=== PATIENT | female | born 1975 | race African-American/Black ===

== ENCOUNTER 2017-03-14 10:42 | Emergency (ER) | payer OTHER ==
[~2017-03-14] VITALS: Ht 160 cm; Wt 58.1 kg
[2017-03-14 10:59] VITALS: BP 100/68
[2017-03-14 11:15] LABS: BASOPHILS # (AUTO) 0.2 K/uL (0.00-0.22); BASOPHILS % (AUTO) 4.1 % (0.0-2.0); EOSINOPHILS # (AUTO) 0.2 K/uL (0-0.4); EOSINOPHILS % (AUTO) 3.9 % (0.0-4.0); HEMATOCRIT 38.4 % (36-48); HEMOGLOBIN 12.9 g/dL (12.0-16.0); LYMPHOCYTES # (AUTO) 1.9 K/uL (2.5-16.5); LYMPHOCYTES % (AUTO) 36.8 % (20.5-51.1); MEAN CORPUSCULAR HEMOGLOBIN 31 pg (27-31); MEAN CORPUSCULAR HGB CONC 34 g/dL (33-37); MEAN CORPUSCULAR VOLUME 92 fL (80-94); MONOCYTES # (AUTO) 0.5 K/uL (0.8-1.0); MONOCYTES % (AUTO) 10.1 % (1.7-9.3); NEUTROPHILS # (AUTO) 2.3 K/uL (1.8-7.7); NEUTROPHILS % (AUTO) 45.1 % (42.2-75.2); PLATELET COUNT (AUTO) 255 K/uL (140-450); RED BLOOD CELL COUNT(AUTO) 4.15 MIL/uL (4.20-5.40); RED CELL DISTRIBUTION WIDTH 12.2 % (11.6-13.7); WHITE BLOOD COUNT (AUTO) 5.1 K/uL (4.8-10.8)
--- NOTE | 2017-03-14 14:15 | NUR ---
Patient to bed 7 at this time,
--- NOTE | 2017-03-14 14:16 | NUR ---
PT PRESENTS TO ER W/C/O CONGESTION/COUGH X1 WEEK. PT DENIES ANY MEDICAL HX. DENIES N/V/D; SKIN IS PINK/WARM/DRY; AAOX4 WITH EVEN AND STEADY GAIT; LUNGS CLEAR BL; HR EVEN AND REGULAR; PT DENIES ANY FEVER, CP, SOB, OR COUGH AT THIS TIME; PATIENT STATES SINUS PRESSURE PAIN OF 7/10 AT THIS TIME; PATIENT POSITIONED FOR COMFORT; HOB ELEVATED; BEDRAILS UP X2; BED DOWN. ER MD MADE AWARE OF PT STATUS.
[2017-03-14] MEDS ORDERED: DEXAMETHASONE 10 MG/ML VIAL IM ONE (15:00)
[2017-03-14] MEDS ORDERED: cefTRIAXone 1,000 MG in LIDOCAINE 1% ED 2.1 ML IM ONE (15:00)
[2017-03-14] MEDS ORDERED: ALBUTEROL SULFATE/IPRATROPIU 3 ML SOL IH ONE (15:00)
--- NOTE | 2017-03-14 15:08 | NUR ---
ADMITTING DX: CONGESTION HX: PATEITN DENIES ASTHMA/COPD HFW POSITION EDUCATIN PROVIDED TO PATIENT WITH ACKNOWLEDGEMENT ON HHN THERAPY AND RESPIRATORY DRUG HHN THERAPY GIVEN OREDERED ENCOURAGED DEEP BREATHING DURING THERAPY TOLERATED WELL WITHOUT ADVERSE REACTIONS NOTED
--- NOTE | 2017-03-14 15:12 | NUR ---
RT AT BEDSIDE FOR BREATHING TREATMENT
[2017-03-14 15:55] VITALS: BP 105/72
--- NOTE | 2017-03-14 15:55 | NUR ---
Patient discharged with v/s stable. Written and verbal after care instructions given and explained. Patient alert, oriented and verbalized understanding of instructions. Ambulatory with steady gait. All questions addressed prior to discharge. ID band removed. Patient advised to follow up with PMD. Rx of ALBUTEROL, AZITHROMYCIN & PREDNISONE given. Patient educated on indication of medication including possible reaction and side effects. Opportunity to ask questions provided and answered.
== END 2017-03-14 15:55 | disposition home or self-care (01) ==
LOC: MED 10:42
DX: J20.9 Acute bronchitis, unspecified (principal); F12.90 Cannabis use, unspecified, uncomplicated
CPT/HCPCS: 36415; 71010; 85025; 94640; 96372; 99285; J0696; J1100; J2001; J7620

== ENCOUNTER 2017-06-06 11:26 | Emergency (ER) | payer OTHER ==
[~2017-06-06] VITALS: Ht 160 cm; Wt 59.0 kg
[2017-06-06 11:41] VITALS: BP 114/67
--- NOTE | 2017-06-06 11:52 | NUR ---
PT MOVED TO OVERFLOW CHAIR 3.
--- NOTE | 2017-06-06 11:53 | NUR ---
41/F c/o left wrist pain s/p trip and fall this morning around 0700. Patient c/o left wrist pain, mild swelling, PCMS intact. AOX4, ambulatory with steady gait. VSS.
--- NOTE | 2017-06-06 12:16 | NUR ---
Pt taken to x-ray via w/c.
--- NOTE | 2017-06-06 13:03 | NUR ---
Pt taken to x-ray via w/c for second x-ray.
[2017-06-06 13:58] VITALS: BP 114/79
--- NOTE | 2017-06-06 13:58 | NUR ---
Patient discharged with v/s stable. Written and verbal after care instructions given and explained. Patient verbalized understanding. Ambulatory with steady gait. All questions addressed prior to discharge. Advised to follow up with PMD.
== END 2017-06-06 13:58 | disposition home or self-care (01) ==
LOC: MED 11:26
DX: S60.212A Contusion of left wrist, initial encounter (principal); W18.30XA Fall on same level, unspecified, initial encounter; Y93.89 Activity, other specified; Y92.098 Other place in other non-institutional residence as the place of occurrence of the external cause; Y99.8 Other external cause status
CPT/HCPCS: 73080; 73110; 99284

== ENCOUNTER 2018-04-26 09:00 | Emergency (ER) | payer OTHER ==
[~2018-04-26] VITALS: Ht 160 cm; Wt 52.2 kg
[2018-04-26 09:08] VITALS: BP 101/71
--- NOTE | 2018-04-26 09:09 | NUR ---
PT AMBULATES TO BED 1
--- NOTE | 2018-04-26 09:23 | NUR ---
c/o lower abdominal cramping x 3 days denies dysuria or vaginal dc denies n/v/d hx--denies rx---none
--- NOTE | 2018-04-26 09:30 | NUR ---
at bedside evaluating pt
[2018-04-26 10:30] LABS: BASOPHILS % (AUTO) 0.5 % (0.0-2.0); EOSINOPHILS # (AUTO) 0.3 K/uL (0-0.4); EOSINOPHILS % (AUTO) 4.6 % (0.0-4.0); HEMATOCRIT 36.9 % (36-48); HEMOGLOBIN 12.3 g/dL (12.0-16.0); LYMPHOCYTES # (AUTO) 2.2 K/uL (2.5-16.5); LYMPHOCYTES % (AUTO) 38.4 % (20.5-51.1); MEAN CORPUSCULAR HEMOGLOBIN 32 pg (27-31); MEAN CORPUSCULAR HGB CONC 34 g/dL (33-37); MEAN CORPUSCULAR VOLUME 95.5 fL (80-94); MONOCYTES # (AUTO) 0.4 K/uL (0.8-1.0); MONOCYTES % (AUTO) 6.8 % (1.7-9.3); NEUTROPHILS # (AUTO) 2.9 K/uL (1.8-7.7); NEUTROPHILS % (AUTO) 49.7 % (42.2-75.2); PLATELET COUNT (AUTO) 258 K/uL (140-450); RED BLOOD CELL COUNT(AUTO) 3.86 MIL/uL (4.20-5.40); RED CELL DISTRIBUTION WIDTH 12.7 % (11.6-13.7); WHITE BLOOD COUNT (AUTO) 5.8 K/uL (4.8-10.8)
--- NOTE | 2018-04-26 10:30 | NUR ---
pt on stretcher in nad
[2018-04-26 10:37] LABS: COLOR,URINE YELLOW (YELLOW)
[2018-04-26 10:44] LABS: BILIRUBIN,URINE NEGATIVE (NEGATIVE); NITRITE, URINE NEGATIVE (NEGATIVE); PH,URINE 6.5 (5.0-9.0); UGLUCOSE NEGATIVE (NEGATIVE)
[2018-04-26 10:46] LABS: APPEARANCE,URINE SLIGHTLY HAZY (CLEAR); BLOOD, URINE TRACE (NEGATIVE); LEUKOCYTE ESTERASE ,URINE TRACE (NEGATIVE)
[2018-04-26 10:47] LABS: RBC,URINE 0-5 (RARE) /HPF (0-5); WBC,URINE 0-5 (RARE) /HPF (0-5)
[2018-04-26 11:20] LABS: PROTHROMBIN TIME 9.9 secs (10.8-13.4)
--- NOTE | 2018-04-26 11:30 | NUR ---
pt on stretcher in nad
[2018-04-26 12:49] VITALS: BP 125/78
== END 2018-04-26 12:50 | disposition home or self-care (01) ==
LOC: MED 09:00
DX: N94.6 Dysmenorrhea, unspecified (principal); N83.202 Unspecified ovarian cyst, left side
CPT/HCPCS: 36415; 76830; 81001; 81025; 84702; 85025; 85610; 85730; 99285; Q0092

== ENCOUNTER 2021-10-12 14:20 | Emergency (ER) | payer SELFPAY ==
[~2021-10-12] VITALS: Ht 157.5 cm; Wt 60.3 kg
--- NOTE | 2021-10-12 14:23 | NUR ---
Patient ambulated with steady gait to bed 1.
[2021-10-12 14:37] VITALS: BP 124/81
--- NOTE | 2021-10-12 14:43 | NUR ---
45YO F C/O LEFT CHEST PAIN, NON-RADIATING WHICH STARTED 30MINS AGO. PT ALSO COMPLAINS OF DIZZINESS AND VOMITING. DENIES PAIN AT THIS TIME. PMH: DENIES
[2021-10-12] MEDS ORDERED: NACL 0.9% 1,000 ML IV ONE (14:55)
[2021-10-12 17:14] VITALS: BP 124/81
== END 2021-10-12 17:14 | disposition home or self-care (01) ==
LOC: MED 14:20
DX: R07.9 Chest pain, unspecified (principal); R11.2 Nausea with vomiting, unspecified; R07.89 Other chest pain
CPT/HCPCS: 93005; 96360; 99283; J7030

== ENCOUNTER 2023-04-03 19:54 | Emergency (ER) | payer OTHER ==
[~2023-04-03] VITALS: Ht 162.6 cm; Wt 70.3 kg
[2023-04-03 19:57] VITALS: BP 147/99; PULSE 96; RESP 18; TEMP 97.9; O2SAT 98
[2023-04-03 21:15] VITALS: BP 147/99; PULSE 96; RESP 18; TEMP 97.9
[2023-04-03 21:30] VITALS: O2SAT 98
[2023-04-03] MEDS ORDERED: IBUPROFEN 600 MG TAB PO ONE (22:50)
[2023-04-03] MEDS ORDERED: ACETAMINOPHEN EXTRA STRENGTH 500 MG TAB PO ONE (22:50)
[2023-04-04] MEDS ORDERED: IBUP-2213 PO (00:22)
== END 2023-04-04 00:34 | disposition home or self-care (01) ==
LOC: MED 19:54
DX: S16.1XXA Strain of muscle, fascia and tendon at neck level, initial encounter (principal); S39.012A Strain of muscle, fascia and tendon of lower back, initial encounter; V49.88XA Car occupant (driver) (passenger) injured in other specified transport accidents, initial encounter; Y93.89 Activity, other specified; Y92.89 Other specified places as the place of occurrence of the external cause; Y99.8 Other external cause status
CPT/HCPCS: 99283